=== PATIENT | male | born 1985 | race Asian ===

== ENCOUNTER 2023-08-08 16:07 | Inpatient (IN) | payer BC ==
[~2023-08-08] VITALS: Ht 170.2 cm; Wt 70.9 kg
[2023-08-08] MEDS ORDERED: LORAZEPAM 2MG/ML CPJ IV STA (16:41)
[2023-08-08] MEDS ORDERED: SODIUM CHLORIDE 0.9% 1,000 ML IV ONE ×2 (16:45→23:00)
[2023-08-08 17:26] LABS: HEMATOCRIT. 48.2 % (42.0-52.0); HEMOGLOBIN. 15.9 g/dL (14.0-18.0); MEAN CORPUSCULAR HEMOGLOBIN 30.4 pg (28.0-32.0); MEAN CORPUSCULAR VOLUME 92.2 fL (80.0-94.0); MEAN PLATELET VOLUME 8.6 fl (7.4-10.4); PLATELET 360 x1000/uL (130-400); RED BLOOD CELL COUNT 5.22 mill/uL (4.7-6.1); RED CELL DISTRIBUTION WIDTH 12.9 % (11.6-14.6); WHITE BLOOD COUNT 21.4 x1000/uL (4.5-11.0)
[2023-08-08 17:27] LABS: DIFFERENTIAL COMMENT 1
[2023-08-08 17:29] LABS: CHLORIDE 103 mEq/L (98-107); INDEX HEMOLYSI 1 (1-3); INDEX ICTERIC 1 (1-4); INDEX LIPEMIC 1 (1-3); POTASSIUM 3.3 mEq/L (3.5-5.1); SODIUM 137 mEq/L (136-145)
[2023-08-08 17:35] LABS: ACETAMINOPHEN 18 ug/mL (10-30); ALANINE AMINOTRANSFERASE 44 IU/L (13-61); ALBUMIN 4.9 g/dL (3.4-5.0); ASPARTATE AMINOTRANSFERASE 25 IU/L (15-37); BILIRUBIN TOTAL 1.5 mg/dL (0.1-1.0); CALCIUM 9.2 mg/dL (8.5-10.1); CARBON DIOXIDE 21 mEq/L (21-32); CREATININE 1.2 mg/dL (0.6-1.3); ETHANOL BLOOD < 10 mg/dL (<10); GLUCOSE 159 mg/dL (70-105); PROTEIN TOTAL 8.7 g/dL (6.0-8.3); UREA NITROGEN BLOOD 10 mg/dL (7-21)
[2023-08-08] MEDS ORDERED: LORAZEPAM 2MG/ML CPJ IV ONE (18:30)
[2023-08-08 18:41] LABS: PLATELET ESTIMATE NORMAL
[2023-08-08 19:19] LABS: *AMPHETAMINES SCREEN URINE PRESUMTIVE POSITIVE (NEGATIVE); *BARBITURATES SCREEN URINE NEGATIVE (NEGATIVE); *BENZODIAZEPINES SCREEN URINE NEGATIVE (NEGATIVE); *COCAINE SCREEN URINE NEGATIVE (NEGATIVE); CANNABINOID URINE SCREEN NEGATIVE (NEGATIVE); ECSTASY MDMA SCREEN URINE CONF.TEST INDICATED (NEGATIVE); OPIATES URINE SCREEN NEGATIVE (NEGATIVE); PHENCYCLIDINE URINE SCREEN NEGATIVE (NEGATIVE)
[2023-08-08 19:29] LABS: TROPONIN I HIGH SENSITIVITY 4 ng/L (<78)
[2023-08-08 19:47] LABS: INDEX HEMOLYSI 1 (1-3)
[2023-08-08 19:48] LABS: CLARITY URINE CLEAR (CLEAR); COLOR URINE YELLOW (YELLOW); GLUCOSE URINE NEGATIVE (NEGATIVE); KETONES URINE 1+ (NEGATIVE); LEUKOCYTE ESTERASE URINE NEGATIVE (NEGATIVE); NITRITE URINE NEGATIVE (NEGATIVE); OCCULT BLOOD URINE NEGATIVE (NEGATIVE); PROTEIN URINE NEGATIVE (NEGATIVE); SPECIFIC GRAVITY URINE 1.014 (1.005-1.030); UROBILINOGEN URINE 0.2 E.U./dL (0.2-1.0)
[2023-08-08 19:54] LABS: CREATINE KINASE 339 IU/L (39-308); TROPONIN I HIGH SENSITIVITY 9 ng/L (<78)
[2023-08-08] MEDS ORDERED: POTASSIUM CHLORIDE 20MEQ TABLET SR PO ONE (20:45)
[2023-08-08 20:48] LABS: DIFFERENTIAL COMMENT 1; HEMATOCRIT. 45.3 % (42.0-52.0); HEMOGLOBIN. 15.3 g/dL (14.0-18.0); MEAN CORPUSCULAR HGB CONC 33.7 g/dL (31.0-37.0); MEAN CORPUSCULAR VOLUME 92.1 fL (80.0-94.0); MEAN PLATELET VOLUME 7.9 fl (7.4-10.4); PLATELET 313 x1000/uL (130-400); RED BLOOD CELL COUNT 4.92 mill/uL (4.7-6.1); RED CELL DISTRIBUTION WIDTH 12.9 % (11.6-14.6); WHITE BLOOD COUNT 15.2 x1000/uL (4.5-11.0)
[2023-08-08 20:54] LABS: CHLORIDE 108 mEq/L (98-107); INDEX HEMOLYSI 1 (1-3); INDEX ICTERIC 1 (1-4); INDEX LIPEMIC 1 (1-3); SODIUM 139 mEq/L (136-145)
[2023-08-08 21:03] LABS: PLATELET ESTIMATE NORMAL
[2023-08-08 21:03] LABS: ACETAMINOPHEN 8 ug/mL (10-30); ALANINE AMINOTRANSFERASE 43 IU/L (13-61); ALBUMIN 4.5 g/dL (3.4-5.0); ASPARTATE AMINOTRANSFERASE 21 IU/L (15-37); BILIRUBIN TOTAL 1.2 mg/dL (0.1-1.0); CALCIUM 9.2 mg/dL (8.5-10.1); CARBON DIOXIDE 22 mEq/L (21-32); CREATININE 1.1 mg/dL (0.6-1.3); GLUCOSE 95 mg/dL (70-105); PROTEIN TOTAL 8.1 g/dL (6.0-8.3); UREA NITROGEN BLOOD 10 mg/dL (7-21)
[2023-08-09 08:30] VITALS: BP 156/92; PULSE 110; RESP 20; TEMP 98.1
[2023-08-09 08:40] VITALS: BP 156/92; PULSE 110; RESP 20; TEMP 98.1
[2023-08-09] MEDS ORDERED: ACETAMINOPHEN 325MG TABLET PO PRN (09:45)
[2023-08-09] MEDS ORDERED: LORAZEPAM 2MG/ML CPJ IV PRN (09:45)
[2023-08-09] MEDS ORDERED: ONDANSETRON HCL 4MG/2ML INJ IV PRN (09:45)
[2023-08-09] MEDS ORDERED: METOPROLOL TARTRATE 25MG TABLET PO SCH (10:00)
[2023-08-09 12:00] VITALS: BP 158/107; PULSE 92; RESP 20; TEMP 97.7
[2023-08-09 16:07] VITALS: BP 139/105; PULSE 92; RESP 20; TEMP 97.9
[2023-08-09 20:00] VITALS: BP 155/104; PULSE 101; RESP 17; TEMP 97.6
[2023-08-09] MEDS: METOPROLOL TARTRATE 25MG TABLET PO SCH (20:34)
[2023-08-10] VITALS: BP 154/95; PULSE 92; RESP 17; TEMP 97.5
[2023-08-10 04:00] VITALS: BP 122/72; PULSE 77; RESP 17; TEMP 97.8
[2023-08-10 08:00] VITALS: BP 119/76; PULSE 112; RESP 20; TEMP 97.7
[2023-08-10] MEDS: METOPROLOL TARTRATE 25MG TABLET PO SCH ×2 (10:25→21:24)
[2023-08-10 12:00] VITALS: BP 134/79; PULSE 71; RESP 20; TEMP 97.9
[2023-08-10 13:16] LABS: BASOPHILS % 0.3 % (0.0-2.0); EOSINOPHILS % 2.2 % (0.0-5.0); HEMATOCRIT. 44.3 % (42.0-52.0); HEMOGLOBIN. 14.7 g/dL (14.0-18.0); LYMPHOCYTES % 11.8 % (20.0-50.0); MEAN CORPUSCULAR HGB CONC 33.3 g/dL (31.0-37.0); MEAN CORPUSCULAR VOLUME 93.1 fL (80.0-94.0); MEAN PLATELET VOLUME 8.6 fl (7.4-10.4); MONOCYTES % 9.9 % (2.0-8.0); NEUTROPHILS % 75.8 % (40.0-76.0); PLATELET 342 x1000/uL (130-400); RED BLOOD CELL COUNT 4.75 mill/uL (4.7-6.1); RED CELL DISTRIBUTION WIDTH 13.4 % (11.6-14.6); WHITE BLOOD COUNT 13.9 x1000/uL (4.5-11.0)
[2023-08-10 13:49] LABS: CHLORIDE 108 mEq/L (98-107); INDEX HEMOLYSI 1 (1-3); INDEX ICTERIC 1 (1-4); INDEX LIPEMIC 1 (1-3); SODIUM 138 mEq/L (136-145)
[2023-08-10 13:57] LABS: ALANINE AMINOTRANSFERASE 80 IU/L (13-61); ALBUMIN 3.9 g/dL (3.4-5.0); ASPARTATE AMINOTRANSFERASE 247 IU/L (15-37); BILIRUBIN TOTAL 1.2 mg/dL (0.1-1.0); CALCIUM 8.5 mg/dL (8.5-10.1); CARBON DIOXIDE 26 mEq/L (21-32); CREATININE 1.1 mg/dL (0.6-1.3); GLUCOSE 134 mg/dL (70-105); PROTEIN TOTAL 7.6 g/dL (6.0-8.3); UREA NITROGEN BLOOD 21 mg/dL (7-21)
[2023-08-10 16:00] VITALS: BP 133/75; PULSE 85; RESP 20; TEMP 97.9
[2023-08-10 20:00] VITALS: BP 136/76; PULSE 86; RESP 17; TEMP 98.1
[2023-08-11 04:00] VITALS: BP 132/78; PULSE 72; RESP 17; TEMP 97.5
[2023-08-11 06:54] LABS: BASOPHILS % 0.2 % (0.0-2.0); EOSINOPHILS % 3.3 % (0.0-5.0); HEMOGLOBIN. 14.6 g/dL (14.0-18.0); LYMPHOCYTES % 14.1 % (20.0-50.0); MEAN CORPUSCULAR HEMOGLOBIN 30.6 pg (28.0-32.0); MEAN CORPUSCULAR HGB CONC 33.1 g/dL (31.0-37.0); MEAN CORPUSCULAR VOLUME 92.4 fL (80.0-94.0); MEAN PLATELET VOLUME 8.6 fl (7.4-10.4); MONOCYTES % 9.9 % (2.0-8.0); NEUTROPHILS % 72.5 % (40.0-76.0); PLATELET 316 x1000/uL (130-400); RED BLOOD CELL COUNT 4.76 mill/uL (4.7-6.1); RED CELL DISTRIBUTION WIDTH 13.2 % (11.6-14.6); WHITE BLOOD COUNT 12.6 x1000/uL (4.5-11.0)
[2023-08-11 08:00] VITALS: BP 129/87; PULSE 96; RESP 20; TEMP 97
[2023-08-11] MEDS: METOPROLOL TARTRATE 25MG TABLET PO SCH ×2 (08:13→21:02)
[2023-08-11 09:42] LABS: CHLORIDE 108 mEq/L (98-107); INDEX HEMOLYSI 1 (1-3); INDEX ICTERIC 1 (1-4); INDEX LIPEMIC 1 (1-3); POTASSIUM 3.7 mEq/L (3.5-5.1); SODIUM 140 mEq/L (136-145)
[2023-08-11 09:49] LABS: ALANINE AMINOTRANSFERASE 69 IU/L (13-61); ALBUMIN 3.5 g/dL (3.4-5.0); ASPARTATE AMINOTRANSFERASE 153 IU/L (15-37); BILIRUBIN DIRECT 0.2 mg/dL (0.0-0.2); CALCIUM 8.4 mg/dL (8.5-10.1); CARBON DIOXIDE 25 mEq/L (21-32); GLUCOSE 91 mg/dL (70-105); UREA NITROGEN BLOOD 16 mg/dL (7-21)
[2023-08-11 12:00] VITALS: BP 140/86; PULSE 103; RESP 20; TEMP 98.8
[2023-08-11 16:00] VITALS: BP 135/85; PULSE 66; RESP 20; TEMP 97
[2023-08-11 20:00] VITALS: BP 128/65; PULSE 88; RESP 20; TEMP 98
[2023-08-11 20:56] LABS: HEPATITIS B SURFACE ANTIGEN NEGATIVE
[2023-08-11 21:24] LABS: HEPATITIS B CORE AB IGM NEGATIVE; HEPATITIS C VIR.AB 0.06 INDEXVAL (0.00-0.80)
[2023-08-11 21:26] LABS: HEPATITIS A AB IGM NEGATIVE (NEGATIVE)
[2023-08-12 00:01] VITALS: BP 130/77; PULSE 70; RESP 20; TEMP 97.8
[2023-08-12 04:00] VITALS: BP 125/88; PULSE 76; RESP 20; TEMP 98.2
[2023-08-12 07:00] VITALS: BP 125/72; PULSE 74; RESP 18; TEMP 98.4
[2023-08-12 07:37] LABS: CHLORIDE 104 mEq/L (98-107); INDEX HEMOLYSI 2 (1-3); INDEX ICTERIC 1 (1-4); INDEX LIPEMIC 1 (1-3); POTASSIUM 3.9 mEq/L (3.5-5.1); SODIUM 138 mEq/L (136-145)
[2023-08-12 07:51] LABS: ALANINE AMINOTRANSFERASE 62 IU/L (13-61); ALBUMIN 3.4 g/dL (3.4-5.0); ASPARTATE AMINOTRANSFERASE 111 IU/L (15-37); BILIRUBIN TOTAL 1.3 mg/dL (0.1-1.0); CALCIUM 8.8 mg/dL (8.5-10.1); CARBON DIOXIDE 24 mEq/L (21-32); CREATININE 0.9 mg/dL (0.6-1.3); GLUCOSE 97 mg/dL (70-105); UREA NITROGEN BLOOD 12 mg/dL (7-21)
[2023-08-12 08:24] LABS: BASOPHILS % 0.3 % (0.0-2.0); HEMATOCRIT. 42.1 % (42.0-52.0); HEMOGLOBIN. 14.1 g/dL (14.0-18.0); LYMPHOCYTES % 11.5 % (20.0-50.0); MEAN CORPUSCULAR HEMOGLOBIN 30.9 pg (28.0-32.0); MEAN CORPUSCULAR HGB CONC 33.4 g/dL (31.0-37.0); MEAN CORPUSCULAR VOLUME 92.4 fL (80.0-94.0); MONOCYTES % 9.1 % (2.0-8.0); NEUTROPHILS % 77.1 % (40.0-76.0); PLATELET 319 x1000/uL (130-400); RED BLOOD CELL COUNT 4.56 mill/uL (4.7-6.1); RED CELL DISTRIBUTION WIDTH 12.9 % (11.6-14.6); WHITE BLOOD COUNT 11.9 x1000/uL (4.5-11.0)
[2023-08-12] MEDS: METOPROLOL TARTRATE 25MG TABLET PO SCH (08:52)
[2023-08-12 12:00] VITALS: BP 125/87; PULSE 81; RESP 18; TEMP 98.6
[2023-08-12 16:16] VITALS: BP 125/87; PULSE 81; TEMP 99; O2SAT 99
[2023-08-12 16:22] VITALS: BP 145/81; PULSE 66; TEMP 97.9; O2SAT 94
== END 2023-08-12 16:00 | disposition home or self-care (01) | DRG 918 ==
LOC: ER 16:07 → MICUSO 08-09 02:03 → EDBEDREQTM 08-09 02:23 → EDBEDREQ 08-09 02:23 → 8WST 08-09 08:24
PROVIDERS: ADMIT Internal Medicine; ATTEND Internal Medicine
DX: T43.622A Poisoning by amphetamines, intentional self-harm, initial encounter (principal); I10 Essential (primary) hypertension; R79.89 Other specified abnormal findings of blood chemistry; Z20.822 Contact with and (suspected) exposure to COVID-19; F32.9 Major depressive disorder, single episode, unspecified; Z79.899 Other long term (current) drug therapy; Y92.89 Other specified places as the place of occurrence of the external cause
CPT/HCPCS: 36415; 71045; 76705; 80053; 80076; 80305; 80307; 80320; 80329; 81003; 82550; 84484; 85025; 86705; 86709; 86803; 87340; 87426; 93005; 99285; C9803; J2060; J7030; A4315; G0480